=== PATIENT | male | born 1960 | race Caucasian/White ===

== ENCOUNTER 2024-06-30 07:49 | Outpatient (CLI) | payer OTHER, SELFPAY ==
--- OUTSIDE RECORDS SUMMARY | 2024-06-30 07:52 | XMS_ITS | Referral Summary ---
Author Organization [facility] Healthcare Address [address] [place] [address] Care Team Providers Care Plastics Scientist Name Role Phone Aspen Hurley MD Primary Care Provider + Allergies No known active allergies Medications amLODIPine (NORVASC) 10 mg tablet TK 1 T PO QD 0 8 Active hydroCHLOROthia zide (HYDRODIURIL) 25 mg tablet TK 1 T PO QD 2 8 Active lovastatin (MEVACOR) 20 mg tablet TK 1 T PO QD HS 0 8 Active lisinopril-hydr oCHLOROthiazide (PRINZIDE,ZESTO RETIC) 20-12.5 mg per tabletIndicatio ns:hypertension TK 1 T PO QD 5 8 Active meloxicam (MOBIC) 7.5 mg tablet TK 1 T PO D 0 9 Active meclizine (ANTIVERT) 25 mg tabletIndicatio ns:Vertigo Take 1 tablet (25 mg total) by mouth 3 (three) times a day as needed for dizziness 30 tablet 0 Active cyclobenzaprine (FLEXERIL) 10 mg tabletIndicatio ns:Muscle Spasm Take 1 tablet (10 mg total) by mouth 2 (two) times a day as needed for muscle spasms 30 tablet 3 Active lidocaine (LIDODERM) 5 % Place 1 patch on the skin daily Remove & discard patch within 12 hours or as directed by MD. 30 patch 3 Active Active Problems No known active problems Social History Tobacco Use Types Packs/Day Years Used Date Smoking Tobacco: Never Smokeless Tobacco: Never Alcohol Use Standard Drinks/Week Comments Yes 0 (1 standard drink = 0.6 oz pur e alcohol) Personal Safety Answer Date Recorded Getting School Help Needed Not on file 08/27 Sex and Gender Information Value Date Recorded Sex Assigned at Not on file Legal Sex Male 1:40 AM STRUCTURAL IRON ERECTOR Gender Identity Not on file Sexual Orientation Not on file Last Filed Vital Signs Vital Sign Reading Time Taken Comments Blood Pressure 148/86 08/21/2022 6:12 PM CDT Pulse 76 08/21/2022 6:12 PM CDT Temperature 37.1 C (98.8 F) 08/21/2022 2:13 PM CDT Respiratory Rate 18 08/21/2022 6:12 PM CDT Oxygen Saturation 98% 08/21/2022 6:12 PM CDT Inhaled Oxygen Concentration - - Weight 97.2 kg (214 lb 4.6 oz) 08/21/2022 2:13 P M CDT Height 167.6 cm (5' 6 ) 08/21/2022 2:13 PM CDT Body Mass Index 34.59 08/21/2022 2:13 PM CDT Plan of Treatment Not on file Insurance [employer] [facility] OPEN ACCESS [facility] CHOICE PLUS CIGNA OPEN ACCESS [employer]IG[employer] OPEN ACCESS [employer] COMPENSATION GENERIC Care Teams Plastics Scientist Relationship Specialty Start Date End Date Aspen Hurley MD [address] [place] [address] PCP - General Pediatrics 02/23/20
--- OUTSIDE RECORDS SUMMARY | 2024-06-30 07:52 | XMS_ITS | Clinical Summary ---
Author Organization [facility] Address [address] [place] [address] Care Team Providers Care Blender Name Role Phone Aspen Hurley MD Primary Care Provider [phone] Allergies No known active allergies Medications aspirin (ECOTRIN EC) 81 mg Tablet, Delayed Release (E.C.) Take 81 mg by mouth daily. Active vitamin B complex (VITAMINS B COMPLEX ORAL) Take 1 Tablet by mouth daily. Active [id number]-fi sh oil 1,000 mg Capsule Take 1 Capsule by mouth daily. Active tamsulosin (FLOMAX) 0.4 mg capsule Take 1 Capsule (0.4 mg) by mouth 2 times daily. 200 Capsule 3 4 Active lisinopriL (PRINIVIL) 10 mg tablet Take 1 Tablet (10 mg) by mouth daily. 100 Tablet 3 4 Active CPAP / BIPAP suppliesIndication s:BEATRICE on CPAP Please obtain previous sleep study from [facility] or [facility] in [place] 1 Each 4 Active sertraline (ZOLOFT) 50 mg tabletIndications: LIDA (generalized anxiety disorder),Insomnia , unspecified type Take 3 Tablets (150 mg) by mouth daily. 270 Tablet 1 4 Active metFORMIN (GLUCOPHAGE XR) 500 mg Extended Release 24 hour tablet Take 2 Tablets (1,000 mg) by mouth two times daily, before breakfast and bedtime. 100 Tablet 3 4 Active rosuvastatin (CRESTOR) 20 mg tabletIndications: Mixed hyperlipidemia Take 1 Tablet (20 mg) by mouth daily. 100 Tablet 3 4 Active busPIRone (BUSPAR) 10 mg tabletIndications: LIDA (generalized anxiety disorder),Current severe episode of major depressive disorder without psychotic features without prior episode (CMS/HCC),Insomnia , unspecified type Take 1 Tablet (10 mg) by mouth 2 times daily. 200 Tablet 3 4 Active Active Problems Problem Noted Date Diagnosed Date BEATRICE on CPAP 01/16/2023 S/P LEAD FABRICATOR shunt 12/25/2022 Aortic valve stenosis 09/01/2022 Benign prostatic hyperplasia without lower urinary tract symptoms 09/01/2022 Recurrent major depressive disorder, in partial remission 07/02/2022 LIDA (generalized anxiety disorder) 03/19/2022 History of COVID-19 12/02/2021 Erectile dysfunction 05/14/2021 Type 2 diabetes mellitus wit hout complication, without long-term current use of insulin 09/07/2020 Congenital hydrocephalus 12/26/2019 Hyperlipidemia 12/26/2019 Vitamin D deficiency 12/26/2019 Obesity (BMI 30.0-34.9) 12/26/2019 Thyroid nodule 12/26/2019 Hypertensive disorder 05/15/2017 Resolved Problems Problem Noted Date Diagnosed Date Resolved Date MDD (major depressive disorder) 12/25/2022 03/12/2023 Increased frequency of urination 12/26/2019 12/02/2022 Encounters Date Type Department Care Team Description 06/07/2024 2:00 PM CDT Office Visit [facility] [place] [address] Adeline Irwin NP Encounter for routine adult health examination with abnormal findings (Primary Dx); Congenital hydrocephalus (CMS/HCC); Hydrocephalus, unspecified type (CMS/HCC); Severe obesity (BMI 35.0-39.9) with comorbidity (CMS/HCC); Type 2 diabetes mellitus without complication, without long-term current use of insulin (CMS/HCC); Mixed hyperlipidemia; Primary hypertension; Thyroid nodule; LIDA (generalized anxiety disorder); Recurrent major depressive disorder, in partial remission; Benign prostatic hyperplasia without lower urinary tract symptoms; Vitamin D deficiency; S/P LEAD FABRICATOR shunt; BEATRICE on CPAP; Aortic valve stenosis, etiology of cardiac valve disease unspecified; Erectile dysfunction, unspecified erectile dysfunction type; History of COVID-19; Screening for prostate cancer; Memory loss due to medical condition 06/07/2024 Results Follow-Up [facility] [address] [place] [address] Adeline Irwin NP POC HEMOGLOBIN A1C 06/02/2024 Mobile Encounter [facility] [address] [place] [phone] Adeline Irwin NP 06/02/2024 Telephone [facility] [address] [place] [phone] Pasha Gimenez PA-C needs appointment ; Patient Communication 06/01/2024 Orders Only [facility] [address] [place] [address] Provider, Abstract 06/01/2024 Telephone [facility] [address] [place] [phone] Aspen Hurley MD Information 06/01/2024 Telephone [facility] [address] [place] [address] Aspen Hurley MD Needs Orders Written 05/18/2024 External Device Data STL ABSTRACTION Provider, Abstract 05/17/2024 External Device Data STL ABSTRACTION Provider, Abstract 05/16/2024 External Device Data STL ABSTRACTION Provider, Abstract 05/12/2024 Abstract [facility] [address] [place] [address] Aspen Hurley MD 05/09/2024 Abstract [facility] [address] [place] [address] Aspen Hurley MD 04/27/2024 External Device Data STL ABSTRACTION Provider, Abstract 04/21/2024 Results Follow-Up [facility] [address] [place] [address] Adeline Irwin NP US HEAD NECK TISSUES 04/21/2024 Orders Only [facility] [address] [place] [address] Aspen Samuel MD Thyroid nodule from Last 3 Months Immunizations Immunization Administration Dates Next Due (PNEUMOVAX 23)(50 YRS UP) PN EUMOCOCCAL POLYSACCHARIDE (PPV23) 0.5 ML, IM 12/26/2019 (PREVNAR 20)(6 WKS UP) PNEUM OCOCCAL CONJUGATE VACCINE 20-VALENT (PCV20), POLYSACCHARIDE [id number] CONJUGATE, ADJUVANT 0.5 ML (PF) IM 03/19/2022 (Pfizer Bivalent)(12 Yr Up) COVID-19 Vaccine - Emergency Use Authorization, MRNA, Lnp-S(Pf) 30 Mcg/0.3 Ml Susp 03/18/2022 (SHINGRIX)(50 YRS UP) ZOSTER VACCINE RECOMBINANT, 0.5 ML, IM 07/02/2022,03/18/2022 (SPIKEVAX)(12 YRS AND UP)COV ID-19 VACCINE, MRNA, LNP-S(PF) 50 MCG/0.5 ML IM SUSPENCY USE AUTHORIZATION, RECOMBINANT-ADJ(PF) 5 MCG/0.5 ML IM SUSP 12/07/2023 (TDVAX)(7 YRS UP) TETANUS AN D DIPHTHERIA TOXOIDS, ADSORBED (2 LF OF TETANUS TOXOID AND 2 LF OF DIPHTHERIA TOXOID), 0.5ML (PF), IM 03/13/2014 INFLUENZA VACCINE QUADRIVALENT 6 MOS UP IM 11/30,04/09/2018 INFLUENZA VACCINE QUADRIVALE NT 6 MOS UP PF IM 03/12/2023,03/19/2022,12/26/2019 INFLUENZA VACCINE TRIVALENT MDCK, (6 MOS UP), 0.5ML (PF), IM 12/07/2023 Influenza Vaccine Tri Split 4+ Im 12/04/2015, Family History Medical History Relation Name Comments Other Brother 1 Healthy Brother 2 Healthy Daughter 1 Healthy Daughter 2 Healthy Daughter 3 Heart Disease Father Stroke Father Alzheimer's Disease Mother Other Mother Arthritis-osteo Sister 1 Healthy Sister 2 COPD Sister 3 Healthy Sister 4 Relation Name Status Comments Brother 1 Brother 2 Alive Daughter 1 Alive Daughter 2 Alive Daughter 3 Alive Father Mother Sister 1 Alive Sister 2 Alive Sister 3 Alive Sister 4 Alive Social History Tobacco Use Types Packs/Day Years Used Date Smoking Tobacco: Never Passive Smoke Exposure: Never Smokeless Tobacco: Never Tobacco Cessation:Counseling Given: No Alcohol Use Standard Drinks/Week Comments Not Currently 2 (1 standard drink = 0.6 oz pur e alcohol) Feeling Safe Answer Date Recorded Are you in a relationship wi th someone who hurts you emotionally and/or physically? No 12/24/2022 Sex and Gender Information Value Date Recorded Sex Assigned at Not on file Legal Sex Male 10:09 PM CDT Gender Identity Not on file Sexual Orientation Not on file Last Filed Vital Signs Vital Sign Reading Time Taken Comments Blood Pressure 132/80 06/07/2024 2:14 PM CDT Pulse 61 06/07/2024 2:14 PM CDT Temperature 37.1 C (98.7 F) 06/07/2024 2:14 PM CDT Respiratory Rate 16 06/07/2024 2:14 PM CDT Oxygen Saturation 97% 06/07/2024 2:14 PM CDT Inhaled Oxygen Concentration - - Weight 99.3 kg (219 lb) 06/07/2024 2:14 PM CDT Height 167.6 cm (5' 6 ) 06/07/2024 2:14 PM CDT Body Mass Index 35.35 06/07/2024 2:14 PM CDT Plan of Treatment Upcoming Encounters Date Type Department Care Team (Late st Contact Info) Description 12/07/2024 9:20 AM CDT Office Visit [facility] Primary Care [facility] [address] [place] [address] Aspen Hurley MD [address] [place] [address] Health Maintenance Due Date Last Done Comments FIT-DNA Q 3 years 2005 FIT/FOBT Q 1 year 2005 Flex Sig/CT Colonography Q 5 years 2005 DTAP/TDAP/TD VACCINES (1 - Tdap) 03/14/2014 03/13/19 15 RSV VACCINE (60+ or ) (1 - Risk 60-74 years 1-dose series) 2020 DIABETES ANNUAL RETINAL EXAM 04/08/2022, 09/18/2020, 09/18/2020 DIABETES HBA1C Q 6 MONTHS 12/07/20242024, 02/11/2024, 03/19/2023, Additional history exists DIABETES MICROALBUMIN ANNUAL SCREEN 02/10/2025 02/11/2024, 03/19/2023, 05/29/2022, Additional history exists LDL CHOLESTEROL ANNUAL 02/10/2025 , 03/19/2023, 07/08/2022, Additional history exists DIABETES ANNUAL FOOT EXAM 06/07/20252024, 03/12/2023, 03/19/2022, Additional history exists DIABETES: A1C (Auto Order) 06/07/202506/07, 02/11/2024, 03/19/2023, Additional history exists Preventative Visit-Managed Medicaid 06/08/2025 06/07/2024, 03/12/2023, 07/02/2022, Additional history exists COLORECTAL SCREENING 08/12/2025 08/12/2022, 08/13/19 Colorectal Cancer Screening 08/12/2025 ZOSTER VACCINE Completed 07/02/2022, 03/18/2022 COVID-19 Vaccine Completed 12/07/2023, 03/18/2022 INFLUENZA VACCINE Completed 12/07/2023, , 03/19/2022, Additional history exists Medical Devices Implanted Type Area Telephone Appointment Clerk Device Identifier Shelf Expiration Date Model / Serial / Lot Programmable Ventriculoperitoneal (Automotive Dismantler) Shunt Description:07/23/2023 DSL Procedures Procedure Name Priority Date/Time Associated Diagnosis Comments POC HEMOGLOBIN A1C Routine 06/07/2024 2: 30 PM CDT Type 2 diabetes mellitus without complication, without long-term current use of insulin ([facility]) EYE EXAM Routine 06/01/2024 2:53 PM CDT LIPID PANEL Routine 02/11/2024 9:17 AM DRAG SEINER Type 2 diabetes mellitus with hyperglycemia, without long-term current use of insulin (CMS/HCC) MICROALBUMIN/CREATIN INE RATIO, RANDOM UR Routine 02/11/2024 9:15 AM DRAG SEINER Type 2 diabetes mellitus with hyperglycemia, without long-term current use of insulin (CMS/HCC) COLONOSCOPY REPORT 08/12/2022 3: 35 PM CDT DIABETES EYE EXAM Routine 04/08/2021 from Last 3 Months or Most Recently Relevant to Health Maintenance Results * POC HEMOGLOBIN A1C (06/07/2024 2:30 PM CDT) [facility] HGB A1C POC 6.0 4.0 - 6.0 % [facility] KIT LOT NUMBER POC [id number] [facility] KIT EXP DATE POC 05/06/2026 [facility] Blood, capillary 06/07/2024 2:30 PM CDT Adeline Irwin NP POINT OF CARE TESTING Final R esult Performing Organization Address City/[facility]/ZIP Co de Phone Number [facility] CLIA# [id number] [address] [place] [address] * EYE EXAM (06/01/2024 2:53 PM CDT) Abstract Provider OPHTH OTHER Edited Result - Final Performing Organization Address City/[facility]/ZIP Co de Phone Number [facility] CLIA# [id number] [address] [place] [address] * (ABNORMAL) LIPID PANEL (02/11/2024 9:17 AM DRAG SEINER) [facility] CHOLESTEROL 256(H) <200 mg/dL [facility] HDL 39(L) > OR = 40 mg/dL [facility] TRIGLYCERIDE 394(H) <150 mg/dL [facility] Comment: If a non-fasting specimen was collected, consider repeat triglyceride testing on a fasting specimen if clinically indicated. Dmitriy et al. J. of Clin. Lipidol. 2015;9:129-169. LDL CALCULATED 156(H) mg/dL (calc) [facility] Comment: Reference range: <100 Desirable range <100 mg/dL for primary prevention; <70 mg/dL for patients with CHD or diabetic patients with > or = 2 CHD risk factors. LDL-C is now calculated using the Arian calculation, which is a validated novel method providing better accuracy than the Friedewald equation in the estimation of LDL-C. Garret HALL et al. MARY. 2013;310(19): 1863-8252 (http://education.Simbionix/faq/RYK659) CHOL/HDL RATIO 6.6(H) <5.0 (calc) [facility] [employer] [facility] NON-HDL CHOLESTEROL 217(H) <130 mg/dL (calc) [facility] Comment: For patients with diabetes plus 1 major ASCVD risk factor, treating to a non-HDL-C goal of <100 mg/dL (LDL-C of <70 mg/dL) is considered a therapeutic option. Test Performed at: [facility] [address] [place] [id number] Mercedes Suero MD Blood 02/11/2024 9:17 AM DRAG SEINER 02/11/2024 9:19 AM DRAG SEINER Pasha Gimenez PA-C CHEMISTRY ORDERABLES F inal Result [facility] [phone] [facility] [address] * MICROALBUMIN/CREATININE RATIO, RANDOM UR (02/11/2024 9:15 AM DRAG SEINER) Creatinine, Urine 131 20 - 320 mg/dL [facility] MICROALBUMIN, URINE 0.9 See Note: mg/dL [facility] Comment: Reference Range: Reference Range Not established MICROALBUMIN/CREAT RATIO, UR 7 <30 mg/g creat [facility] Comment: The ADA defines abnormalities in albumin excretion as follows: Albuminuria Category Result (mg/g creatinine) Normal to Mildly increased <30 Moderately increased 30-299 Severely increased > OR = 300 The ADA recommends that at least two of three specimens collected within a 3-6 month period be abnormal before considering a patient to be within a diagnostic category. Test Performed at: [facility] [address] [phone] Mercedes Suero MD Urine URINE SPECIMEN OBTAINED BY CLEAN CATCH PROCEDURE / Unknown 02/11/2024 9:15 AM DRAG SEINER 02/11/2024 9:16 AM DRAG SEINER Pasha Gimenez PA-C URINE ORDERABLES Final Result [facility] [phone] [employer] [facility] [address] [phone] * COLONOSCOPY REPORT (08/12/2022 3:35 PM CDT) Narrative Procedure Note Mir Boyle MD - 08/12/2022 3:34 PM CDT [facility] Endoscopy Patient Name: Anthony Membreno Procedure Date: 08/12/2022 Date of : 1960 Attending MD: Mir Boyle MD, Procedure: Colonoscopy Indications: High risk colon cancer surveillance: Personal history of colonic polyps Providers: Mir Boyle MD Referring MD: Aspen Hurley MD Medicines: Monitored Anesthesia Care Complications: No immediate complications. Procedure: Informed consent was obtained for the procedure, including moderate sedation after risks were discussed. Based on the pre-procedure assessment, including review of the patient's medical history, medications, allergies, and review of systems, the patient was deemed to be an appropriate candidate for sedation. A timeout was performed. Continuous ECG monitoring, pulse oximetry, blood pressure monitoring, and direct observation were performed. The Colonoscope was introduced through the anus and advanced to the cecum, identified by appendiceal orifice and ileocecal valve. The colonoscopy was performed without difficulty. The patient tolerated the procedure well. The quality of the bowel preparation was good. The quality of the bowel preparation was evaluated using the BBPS ([place] Bowel Preparation Scale) with scores of: Right Colon = 3, Transverse Colon = 3 and Left Colon = 3 (entire mucosa seen well with no residual staining, small fragments of stool or opaque liquid). The total BBPS score equals 9. Findings: The perianal and digital rectal examinations were normal. Four sessile polyps were found in the transverse colon. The polyps were 5 to 7 mm in size. These polyps were removed with a cold snare. Resection and retrieval were complete. A diminutive polyp was found in the rectum. The polyp was sessile. The polyp was removed with a cold snare. Resection and retrieval were complete. External and internal hemorrhoids were found during retroflexion. The hemorrhoids were medium-sized and Grade I (internal hemorrhoids that do not prolapse). The exam was otherwise without abnormality on direct and retroflexion views. Impression: - Four 5 to 7 mm polyps in the transverse colon, removed with a cold snare. Resected and retrieved. - One diminutive polyp in the rectum, removed with a cold snare. Resected and retrieved. - External and internal hemorrhoids. - The examination was otherwise normal on direct and retroflexion views. Recommendation: - Discharge patient to home (with escort). - Await pathology results. - Repeat colonoscopy in 3 years for surveillance based on pathology results. Procedure Code(s): --- Professional --- 95063, Colonoscopy, flexible; with removal of tumor(s), polyp(s), or other lesion(s) by snare technique CPT copyright 2020 [employer]. All rights reserved. The codes documented in this report are preliminary and upon soda fountain operator review may be revised to meet current compliance requirements. Mir Boyle MD 08/12/2022 3:34:11 PM This report has been signed electronically. Number of Addenda: [id number], [place] [address] us Mir Boyle MD GI PROCEDURE ORDERABLES Final Result * DIABETES EYE EXAM (04/08/2021) us Abstract Provider HEALTH MAINTENANCE Final Resul t [facility]# [id number] [address] [place] [address] from Last 3 Months or Most Recently Relevant to Health Maintenance Insurance [address] [place] [address] [place] [address] MEDICAID Care Teams Blender Relationship Specialty Start Date End Date Aspen Hurley MD [address] [place] [phone] PCP - General Internal Medicine 12/26/19
--- OUTSIDE RECORDS SUMMARY | 2024-06-30 07:52 | XMS_ITS | Encounter Summary ---
Author Organization [facility] [employer] [facility] Address [address] [place] [address] Care Team Providers Care School Library Media Specialist Name Role Phone Aspen Hurley MD Primary Care Provider [phone] Encounter Details Date Type Department Care Team (Late st Contact Info) Description 06/07/2024 Results Follow-Up [facility] [address] [place] [address] Adeline Irwin NP [address] [place] [address] POC HEMOGLOBIN A1C Social History Tobacco Use Types Packs/Day Years Used Date Smoking Tobacco: Never Passive Smoke Exposure: Never Smokeless Tobacco: Never Alcohol Use Standard Drinks/Week Comments Not Currently [...] on file Sexual Orientation Not on file documented as of this encounter Miscellaneous Notes * Result Encounter Note - Adeline Irwin NP - 06/07/2024 5:10 PM CDT Reviewed at [facility]. documented in this encounter Plan of Treatment Upcoming Encounters Date Type Department Care Team (Late st Contact Info) Description 12/07/2024 9:20 AM CDT Office Visit [facility] [address] [place] [address] Aspen Hurley MD [address] [place] [address] documented as of this encounter Visit Diagnoses Not on filedocumented in this encounter Additional Health Concerns Assessment Noted Time PHQ-9 Depression Total Score: 4 06/08/19 25 2:06 PM CDT documented as of this encounter Care Teams School Library Media Specialist Relationship Specialty Start Date End Date Aspen Hurley MD [address] [place] [address] PCP - General Internal Medicine 12/26/19 documented as of this encounter
--- OUTSIDE RECORDS SUMMARY | 2024-06-30 07:52 | XMS_ITS | Clinical Summary ---
Author Organization [facility] Address [address] [place] [address] Care Team Providers Care Rabbit Dresser Name Role Phone Aspen Hurley MD Primary Care Provider [phone] Source Comments [facility],non-owned Affiliates and Associated Physician Practices is amultiple site organization consisting of ambulatory clinics and hospital sitesin [place], [place], [place] and [place]. This disclosure is being madepursuant to the Care Everywhere program and may not contain all information available regarding this patient. Last updated 17.[facility] Allergies No known active allergies Medications * Be aware that medications may not be up to date on this document. Alwaysverify current medications with the patient. Multiple Vitamin (MULTIVITAMIN ADULT PO) Take 1 tablet by mouth once daily Active busPIRone (Buspar) 10 MG tablet Take 1 (one) tablet by mouth once daily 3 Active dutasteride (Avodart) 0.5 MG capsule Take 1 (one) capsule by mouth once daily 3 Active lidocaine (Lidoderm) 5 % patch Apply 1 (one) patch to skin once daily 3 Active lisinopril-hyd roCHLOROthiazi de (Prinzide; Zestoretic) 20-12.5 MG tablet Take 1 (one) tablet by mouth once daily 3 Active tirzepatide (Mounjaro) 2.5 MG/0.5ML injection Inject 2.5 (two and one-half) mg subcutaneously every 7 days 3 Active Nightmute-3 Fatty Acids (Nightmute-3 Fish Oil) 1000 MG capsule Take 1 (one) capsule by mouth once daily Active metFORMIN ER 24hr (Glucophage XR) 500 MG tablet Take 2 (two) tablets by mouth daily with breakfast 3 Active acetaminophen (Tylenol) 500 MG tablet Take 1 (one) tablet by mouth every 6 hours as needed Maximum allowable Acetaminophen amount = 4 Grams (4000 mg) / 24 hours. 3 Active Additional Information Patient not taking.Reported on 01/27/2023 rosuvastatin (Crestor) 20 MG tablet Take 1 (one) tablet by mouth once daily 3 Active tamsulosin (Flomax) 0.4 MG capsule Take 1 (one) capsule by mouth once daily for 30 days At the same time every day after a meal. 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 12/25/2022 DM2 (diabetes mellitus, type 2) 12/25/2022 HTN (hypertension) 12/25/2022 BPH (benign prostatic hyperplasia) 12/25/2022 Congenital hydrocephalus 12/25/2022 LIDA (generalized anxiety disorder) 12/25/2022 HLD (hyperlipidemia) 12/25/2022 MDD (major depressive disorder) 12/25/2022 BEATRICE (obstructive sleep apnea) 12/25/2022 History of hydrocephalus 12/24/2022 Shunt malfunction, initial encounter 12/24/2022 Thyroid nodule 12/26/2019 12/30/2022 Obesity (BMI 30.0-34.9) 12/26/2019 12/31/19 23 Resolved Problems Problem Noted Date Diagnosed Date Resolved Date Altered mental status, unspe cified altered mental status type 12/24/2022 12/30/2022 Immunizations Immunization Administration Dates Next Due INFLUENZA VACCINE, TRIV. (AF LURIA, FLUZONE TRIVALENT; 6MO+) (IIV3) 12/04/2015,04/05/2013 COVID Md7 BIVALENT 12Y+ 30mcg/0.3ML 3 FLU VACCINE QUAD IIV4 SPLIT 0.25 ML IM 9,04/09/2018 INFLUENZA VACCINE, QUADR. (F LUZONE; FLULAVAL; FLUARIX; AFLURIA QUADRIVALENT; 6MO+), 0.5 ML (IIV4) 03/19/2022,12/26/2019 PNEUMOCOCCAL PPSV23 12/26/2019 Td (Adult), 2 Lf Tetanus Toxoid, Adsorbed, Pf Zoster Hzv Vacc Recombinant Inj Im 07/02/2022, Family History Medical History Relation Name Comments Alzheimer's Disease Mother Arthritis - Osteo Sister Relation Name Status Comments Mother Sister Social History Tobacco Use Types Packs/Day Years Used Date Smoking Tobacco: Never Smokeless Tobacco: Never Alcohol Use Standard Drinks/Week Comments Never 0 (1 standard drink = 0.6 oz pur e alcohol) AUDIT-C Answer Date Recorded Q1: How often do you have a drink containing alc ohol? Monthly or less 12/25/2022 Q2: How many drinks containi ng alcohol do you have on a typical day when you are drinking? 1 or 2 12/25/2022 Q3: How often do you have si x or more drinks on one occasion? Never 12/25/2022 Overall Financial Resource Strain (CARDIA) Answe r Date Recorded How hard is it for you to pa y for the very basics like food, housing, medical care, and heating? Hard 12/25/2022 [employer] [place] [facility] Occup[facility] ional [facility] - Occupational Stress Questionnaire Answer Date Recorded Do you feel stress - tense, restless, nervous, or anxious, or unable to sleep at night because your mind is troubled all the time - these days? Only a little 12/25/2022 Hunger Vital Sign Answer Date Recorded Within the past 12 months, y ou worried that your food would run out before you got the money to buy more. Never true 12/26/19 23 Within the past 12 months, t he food you bought just didn't last and you didn't have money to get more. Never true 12/25/2022 PRAPARE - Transportation Answer Date Re corded In the past 12 months, has l ack of transportation kept you from medical appointments or from getting medications? No 12/07 In the past 12 months, has l ack of transportation kept you from meetings, work, or from getting things needed for daily living? No 12/25/2022 Housing Stability Vital Sign Answer Mannie e Recorded In the last 12 months, was t here a time when you were not able to pay the mortgage or rent on time? Yes 12/25/2022 In the last 12 months, how many places have you lived? 4 12/25/2022 In the last 12 months, was t here a time when you did not have a steady place to sleep or slept in a skilled nursing (including now)? No 12/25/2022 Sex and Gender Information Value Date Recorded Sex Assigned at Not on file Legal Sex Male 5:36 PM CDT Gender Identity Not on file Sexual Orientation Not on file Last Filed Vital Signs Vital Sign Reading Time Taken Comments Blood Pressure 174/82 04/07/2023 9:07 AM UPLANDS DIVISION DIRECTOR Pulse 56 04/07/2023 9:07 AM UPLANDS DIVISION DIRECTOR Temperature 37.1 C (98.7 F) 04/07/2023 9:07 AM UPLANDS DIVISION DIRECTOR Respiratory Rate 19 01/27/2023 10:10 AM UPLANDS DIVISION DIRECTOR Oxygen Saturation 97% 04/07/2023 9:07 AM UPLANDS DIVISION DIRECTOR Inhaled Oxygen Concentration 28% 12/26/2022 1 2:02 AM CDT Weight 93 kg (205 lb) 04/07/2023 9:07 AM UPLANDS DIVISION DIRECTOR Height 167.6 cm (5' 6 ) 04/07/2023 9:07 AM UPLANDS DIVISION DIRECTOR Body Mass Index 33.09 04/07/2023 9:07 AM UPLANDS DIVISION DIRECTOR Plan of Treatment Health Maintenance Due Date Last Done Comments COLOGUARD (AGES 45-75) - COLON CA SCREENING 1960 COLON MONITORING 1960 COLONOSCOPY - COLON CA SCREENING 1960 CT COLONOGRAPHY - COLON CA SCREENING 1960 Colorectal Cancer Screening 1960 FIT - COLON CA SCREENING 1960 FLEX SIG - COLON CA SCREENING 1960 HIV SCREENING 10/13/1975 HEPATITIS C SCREENING 10/08/1978 DTAP/TDAP/TD VACCINES (1 - Tdap) 03/14/2014 03/13/2014 PNEUMOCOCCAL VACCINE 50+ (2 of 2 - PCV) 12/25/2020 12/26/2019 DIABETES RETINOPATHY SCREENING 12/25/2022 DIABETES-FOOT EXAM WITH MONOFILAMENT 12/25/2022 DIABETES-HGB A1C 06/26/2023 12/25/2022 COVID-19 VACCINE (2 - season) 2023 03/18/2022 DIABETES-SERUM CREATININE 12/31/20232022, 12/28/2022, 12/27/2022, Additional history exists DEPRESSION SCREENING 03/09/2024 DIABETES - URINE PROTEIN SCREENING 03/09/2024 INFLUENZA VACCINE (Season Ended) 2024 03/12/2023, 03/19/2022, 12/26/2019, Additional history exists Respiratory Syncytial Virus (RSV) Vaccine Pt: or over 60 yrs (1 - 1-dose 75+ series) 10/13/2035 ZOSTER VACCINE Completed 07/02/2022, 03/18/2022 HEPATITIS B VACCINE Aged Out No longe r eligible based on patient's age to complete this topic HIB VACCINE Aged Out No longer eligi ble based on patient's age to complete this topic HPV VACCINE Aged Out No longer eligi ble based on patient's age to complete this topic MENINGOCOCCAL (Group B) VACCINE SHARED DECISION-MAKING Aged Out No longer eligible based on patient's age to complete this topic MENINGOCOCCAL GROUPS A/C/Y/W VACCINE Aged Out No longer eligible based on patient's age to complete this topic Medical Devices Implanted Type Area Social Services Aide Device Identifier Shelf Expiration Date Model / Serial / Lot Kit Ba Annie Cdmn Bctsl Cath 120cm 14cm Implanted:Qty: 1 on 12/25/2022 by Adryan Troy MD at [facility] Right: Parietal [employer] 07/07/2023 [id number] / / [id number] Valve Shnt Strt2 Reg Csf Prgm Flw Cntrl Implanted:Qty: 1 on 12/25/2022 by Adryan Troy MD at [facility] Right: Parietal [employer] 05/26/2025 [id number] / / [id number] Clip Srg Std Rt Ang Implanted:Qty: 1 on 12/25/2022 by Adryan Troy MD at [facility] Right: Parietal [employer] [id number] / / Procedures Procedure Name Priority Date/Time Associated Diagnosis Comments COMPREHENSIVE METABOLIC PANEL Routine 12/30/2022 12:23 PM CDT HEMOGLOBIN A1C Routine 12/25/2022 5:18 AM CDT from Last 3 Months or Most Recently Relevant to Health Maintenance Results * (ABNORMAL) COMPREHENSIVE METABOLIC PANEL (12/30/2022 12:23 PM [facility]) BUN 11 7 - 26 mg/dL 12/30/2022 1:32 PM [facility] Creatinine 0.67(L) 0.71 - 1.16 mg/dL 12/30/2022 1:32 PM [facility] Sodium 134(L) 136 - 145 mmol/L 12/30/2022 1:32 PM [facility] Potassium 4.1 3.5 - 4.5 mmol/L 12/30/2022 1:32 PM [facility] Chloride 99 98 - 107 mmol/L 12/30/2022 1:32 PM [facility] CO2 21(L) 22 - 29 mmol/L 12/30/2022 1:32 PM [facility] Glucose 171(H) 70 - 115 mg/dL 12/30/2022 1:32 PM [facility] Calcium 9.6 8.4 - 10.2 mg/dL 12/30/2022 1:32 PM [facility] Protein Total 7.5 6.0 - 8.3 g/dL 12/30/2022 1:32 PM [facility] Albumin 4.0 3.4 - 5.0 g/dL 12/30/2022 1:32 PM [facility] Bilirubin Total 0.5 0.2 - 1.2 mg/dL 12/30/2022 1:32 PM [facility] Alkaline Phosphatase 68 40 - 150 U/L 12/30/2022 1:32 PM [facility] ALT 24 5 - 55 U/L 12/30/2022 1:32 PM [facility] AST 23 5 - 34 U/L 12/30/2022 1:32 PM [facility] Anion Gap 14 6 - 16 12/30/2022 1:32 PM [facility] BUN/Creatinine Ratio 16 7 - 23 12/30/2022 1:32 PM [facility] Osmolality Calculated 281 275 - 295 mOsm/kg 12/30/2022 1:32 PM [facility] Albumin/Globulin Ratio 1.1 1.1 - 2.3 12/30/2022 1:32 PM CDT [facility] eGFR by CKD-EPI >90 >=90 mL/min/1.7 3 m2 12/30/2022 1:32 PM CDT [facility] Blood BLOOD SPECIMEN / Unknown Lab Venipuncture / Unknown 12/30/2022 12:23 PM CDT 12/30/2022 1:06 PM CDT Edward Saavedra MD LAB - CHEMISTRY ORDERAB LES Final Result Performing Organization Address City[facility]/ZIP Co de Phone Number [facility] [address] [place] [id number], [facility] [phone] * (ABNORMAL) HEMOGLOBIN A1C (12/25/2022 5:18 AM CDT) Hemoglobin A1c 6.0(H) <=5.6 % 12/25/2022 10:43 AM T [facility] Estimated Average Glucose 126 mg/dL 12/25/2022 10:43 AM T [facility] Comment: HbA1c Interpretation: Normal : < 5.7% Pre-diabetes: 5.7-6.4% Diabetes: Equal to or greater than 6.5% Test results diagnostic of diabetes should be repeated for confirmation. Treatment target values recommended by ADA and other clinical organizations should be used to evaluate metabolic control in patients. Reference: [place] [employer], Standards of Care in Diabetes -2020 In patients 70 years and older consider HbA1c target range of 7.0-7.5% (Reference: Jarvis Martinez et al. JAMDA. 2012) The Sebia assay for the measurement of HbA1c is a National Glycohemoglobin Standardization Program (NGSP) certified method. Blood BLOOD SPECIMEN / Unknown Lab Venipuncture / Unknown 12/25/2022 5:18 AM CDT 12/25/2022 5:37 AM CDT us Marquis Chapman MD LAB - CHEMISTRY ORDERABLE S Final Result Performing Organization Address City/[facility]/ZIP Co de Phone Number [facility] [address] [place] [address] [phone] from Last 3 Months or Most Recently Relevant to Health Maintenance Insurance [employer] Advance Directives * Full Code (Latest Code Status on File) Date Activated Date Inactivated Comments 12/25/2022 12:40 AM 12/30/2022 5:49 PM Care Teams Rabbit Dresser Relationship Specialty Start Date End Date Aspen Hurley MD [address] [place] [address] PCP - General Pediatrics 01/27/23
--- OUTSIDE RECORDS SUMMARY | 2024-06-30 07:52 | XMS_ITS | Clinical Summary ---
Author Organization [facility] Address [address] [place] [address] Care Team Providers Care Bottom Hoop Driver Name Role Phone Aspen Hurley MD Primary [...] Active Active Problems No known active problems Surgical History Surgery Date Site/Laterality Comments SHUNT REVISION Medical History Medical History Date Comments Hypertension Family History Medical History Relation Name Comments Alcohol abuse Father Arthritis Father Hypertension Father Stroke Father Alcohol abuse Sister Relation Name Status Comments Father Sister Social History Tobacco Use Types Packs/Day Years Used Date Smoking Tobacco: Never Smokeless Tobacco: Never Alcohol Use Standard Drinks/Week Comments Yes 0 (1 standard drink = 0.6 oz pur e alcohol) Personal Safety Answer Date Recorded Getting School Help Needed Not on file 08/27 Sex and Gender Information Value Date Recorded Sex Assigned at Not on file Legal Sex Male 1:40 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 Gender Identity Not on file Sexual Orientation Not on file Obstetrics History Last Filed Vital Signs Vital Sign Reading [...] 08/21/2022 2:13 PM CDT Plan of Treatment Health Maintenance Due Date Last Done Comments Colon Cancer Screening-Colonoscopy 1960 Depression Screening 1960 Hepatitis C Screening 1960 Prostate Cancer Screening-PSA 1960 Hepatitis B Screening 1978 Regular Well Visit/Exam 18-64 1978 DTaP/Tdap/Td Vaccine (1 - Tdap) 03/14/2014 03/13/2014, 03/13/2014 Influenza Vaccine (#1) 2023 , 12/26/2019, 11/30/2018, Additional history exists Pneumococcal vaccine <65 Aged Out 12/26/2019 No longer eligible based on patient's age to complete this topic Zoster Vaccine Completed 07/02/2022, 03/18/2022 Insurance [facility] [employer] CIG[employer] OPEN ACCESS [facility] CHOICE PLUS CIGNA OPEN ACCESS [employer] OPEN ACCESS [employer] COMPENSATION GENERIC Care Teams Bottom Hoop Driver Relationship Specialty Start Date End Date Aspen Hurley MD [address] [place] [address] PCP - General Pediatrics 02/23/20
--- NOTE | 2024-07-26 10:44 | P.SLEEP_ITS ---
Sleep Study Date of Study: 06/30/24 Ordering Provider: Sander Medina APRN Interpreting Physician: Misti Benz DO Sleep Study Type: CPAP Titration Height: 1.68 m Weight: 98.883 kg Body Mass Index: 35.2 Neck Circumference (inches): 17.5 [place]: 18 Reason for Sleep Study Previously diagnosed with sleep apnea. Currently compliant with CPAP. Eligible for new machine. Sleep History The patient is a 63-year-old male that had a sleep study ordered by the pulmonary group to requalify for new CPAP equipment. The patient frequently awakens from sleep short of breath. He frequently awakens at night with heartb urn, belching or. He rarely snores but is constantly loud enough that others complain. He occasionally has trouble sleeping when he has a cold. He frequently wakes up gasping for air throughout the night. He rarely has breathing problems at night observed by himself or others. He occasionally sweats excessively at night. He rarely has heart palpitations or irregular heartbeats during the night. He frequently falls asleep during the day but never while driving. He denies sleep paralysis, cataplexy and hypnagogic/ hypnopompic hallucinations. He frequently has trouble at school or work due to sleepiness. He denies feeling afraid of going to sleep. He denies having nightmares. He denies never bring his dreams. He frequently has thoughts racing through his. He occasionally feels sad or depressed. He frequently has anxiety. He denies having muscular tension. He denies noticing parts of his body jerk. He denies kicking during the night. He denies having crawling and aching feelings in his legs and denies having leg pain during the night. He denies grinding his teeth during sleep and denies awakening with morning jaw pain. He is rarely bothered by pain during the day and rarely awakened by pain during the night. He occasionally wakes up feeling stiff in the morning. He denies sore or achy muscles. He occasionally wakes up pain, spine. He goes to bed at 10:00 p.m.. It takes him 1.5-2 hours to fall asleep. He wakes up once throughout the night for unknown reasons and there is a 50% chance he will fall back asleep. He wakes up at 7:00 a.m. every morning. He typically gets 7 hours of sleep per night. He will stay in bed for 10 minutes after waking up in the morning. He lives alone. He denies consuming any caffeinated beverages within 2 hours of bedtime. He denies engaging in physical exercise before bedtime. He denies reading and watching television before falling asleep. He will take naps in the afternoon or the evening but they are not ref reshing He consumes 3 caffeinated sodas per day. He denies tobacco, alcohol and recreational drug use. 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 shunt and revision x8 Social History Social History Smoking status: Never smoker Alcohol intake: current Alcohol use details: rare Substance use: never Occupation/Education: retired Medications Home Medications Medication Instructions Recorded Confirmed Type aspirin 81 mg chewable tablet 81 mg PO DAILY 05/04/24 05/04/24 History buspirone 5 mg tablet 5 mg PO BID 05/04/24 05/04/24 History eszopiclone 2 mg tablet 2 mg PO ONCE #1 tablet 05/04/24 05/04/24 Rx lisinopril 20 mg tablet 20 mg PO DAILY 05/04/24 05/04/24 History metformin 500 mg tablet 500 mg PO BID 05/04/24 05/04/24 History rosuvastatin 5 mg tablet 5 mg PO DAILY 05/04/24 05/04/24 History sertraline 50 mg tablet 50 mg PO DAILY 05/04/24 05/04/24 History tamsulosin 0.4 mg capsule 0.4 mg PO DAILY 05/04/24 05/04/24 History Sleep Procedure A full night CPAP Titration using the Inspirotec SleepAirpersons multi-channel system recorded the standard physiologic parameters including EEG, EOG, submentalis EMG, anterior tibialis EMG, EKG, body position, nasal and oral airflow using nasal pressure sensor and thermistor. Respiratory parameters of chest and abdominal movements were recorded with Respiratory Inductance Plethysmography belts. Oxygen saturation was recorded by pulse oximetry. Video monitoring was also performed. Sleep stages, periodic limb movements, and EEG arousals were sco red in 30 second epochs according to the criteria of the AASM Scoring Manual. The Apnea-Hypopnea Index was calculated using CMS guidelines for definition of hypopnea with 4% O2 desaturations while scoring respiratory events. Sleep Architecture The total recording time was 483.9 minutes. The total sleep time was 390.5 minutes. Sleep latency was 31.8 minutes. REM latency was 314.0 minutes. Sleep efficiency was 80.7%. The patient had 24 awakenings for an awakening index of 3.7. Wake after Sleep Onset time was 61.5 minutes. The patient spent 27.5 minutes, 7.0% of total sleep time in Stage N1. The patient spent 313.0 minutes, 80.2% in Stage N2. The patient spent 3.5 minutes, 0.9% in Stage N3. The patient spent 46.5 minutes, 11.9% in Stage REM. Respiratory Analysis The patient had 5 hypopneas and 1 central apneas for an overall Apnea Hypopnea Index of 0.9 events per hour. The REM Apnea Hypopnea Index was 2.6. The NREM Apnea Hypopnea Index was 0.7. The patient had a Central Apnea Hypopnea Index of 0.2. There was no evidence of Johann-John Respirations. The patient was started on CPAP 6 cm H2O and titrated to CPAP 8 cm H2O due to hypopneas. The patient was able to fall asleep starting on CPAP 6 cm H2O. The patient was able to achieve REM sleep starting on CPAP 7 cm H2O. The patient was able to achieve a residual AHI less than 5 with both NREM and REM sleep in the supine position on the final two pressure settings. On CPAP 7 cm H2O, the patient spent 60.5 minutes in NREM and 11 minutes in REM with no respiratory events, resulting in an AHI of 0. On CPAP 8 cm H2O, the patient spent 76.5 minutes in NREM and 35.5 minutes in REM with 1 central apnea and 2 hypopneas, resulting in an AHI of 1.6. The patient had a sleep efficiency of 94.1% on 7 cm H2O and 92.6% on 8 cm H2O. Arousals There were 130 total arousals for an arousal index of 20.0. There were 43 spontaneous arousals for an index of 6.6. There were 2 arousals due to respiratory events for an index of 0.3. There were 70 arousals due to periodic limb movements for an index of 10.8. There were 18 arousals due to isolated limb movements for an index of 2.8. Periodic Limb Movements The patient had 80 isolated limb movements with an index of 12.3. The patient had 427 periodic limb movements with index of 65.6, which is elevated (normal < 15). Patient had a total of 507 limb movements with a total limb movement index of 77.9. Oximetry Data The patient had an average oxygen saturation of 92.6% in sleep with a minimum oxygen saturation of 89.0% and a maximum oxygen saturation of 97.0%. The patient had 5 oxygen desaturations that were 4% or greater resulting in an Oxygen Desaturation Index of 0.8. The patient spent 0 minutes of total sleep time with an oxygen saturation below 88%. Snoring Profile Snoring was present intermittently in the beginning of the study. The snoring resolved once the patient was titrated to 8 cm H2O. Cardiac Profile The EKG showed normal sinus rhythm. No arrhythmias or premature beats were seen. The patient had an average pulse rate of 55.8 bpm with a minimum pulse rate of 47.0 bpm and a maximum pulse rate of 71.0 bpm. EEG Profile No signs of seizure activity seen. Assessment and Plan Assessment and Plan (1) BEATRICE (obstructive sleep apnea): Code(s): G47.33 - Obstructive sleep apnea (adult) (pediatric) Status: Acute Assessment and Plan: The patient was started on CPAP 6 cm H2O and titrated to CPAP 8 cm H2O due to hypopneas. The patient's sleep apnea resolved on the final pressure setting with a high sleep efficiency. I recommend that the patient be prescribed CPAP 8 cm H2O, size medium Resmed AirFit P10 nasal pillow, CPAP filters/tubing and heated humidity. This should be used with all episodes of sleep. Compliance should be reviewed within 31-90 days of starting therapy for usage greater than 4 hours per night greater than 70% of the nights. The patient should be asked about symptoms such as excessive daytime sleepiness, quality of sleep, decreased nocturia, increased mental functioning such as memory, mood, and concentration. While the patient had a significant amount of periodic limb movements during the study, the frequently drastically decreased once he was titrated to the optimal pressure setting. I recommend asking the patient about leg movements during his first compliance visit. Data The data obtained during this sleep study is adequate for interpretation. Certification This sleep study has been reviewed by a board certified sleep medicine physician.
[2024-07-27 10:39] VITALS: BMI 35.2
== END 2024-07-01 06:54 | disposition home or self-care (01) ==
LOC: ANHCSM 07:49
PROVIDERS: Visit Provider Nurse Practitioner Family
DX: G47.00 Insomnia, unspecified (principal); G47.19 Other hypersomnia; G47.33 Obstructive sleep apnea (adult) (pediatric)
CPT/HCPCS: 95811